=== PATIENT | female | born 1985 | race Caucasian/White ===

== ENCOUNTER 2017-05-12 13:03 | Emergency (ER) | payer BC ==
[~2017-05-12] VITALS: Ht 165.1 cm; Wt 68.5 kg
[2017-05-12 15:33] LABS: BASOPHIL % 0.7 % (0-2); PLATELET COUNT 251 x10^3mcL (130-400); RED CELL DISTRIBUTION WIDTH 12.8 % (11.5-14.5)
[2017-05-12 15:34] LABS: UA SPECIFIC GRAVITY <=1.005 (1.005-1.035); microscopic required? YES; urine erythrocyte NEGATIVE (NEGATIVE)
[2017-05-12 15:41] LABS: CALCIUM 8.8 mg/dL (8.5-10.1); CARBON DIOXIDE 28.7 mmol/L (21-32); CHLORIDE SERUM 104 mmol/L (98-107); CREATININE SERUM 0.8 mg/dL (0.6-1.0); GFR1 > 60 mL/min; GLUCOSE SERUM 88 mg/dL (74-106); POTASSIUM SERUM 3.9 mmol/L (3.5-5.1); SODIUM SERUM 140 mmol/L (136-145)
[2017-05-12 15:45] LABS: ALBUMIN 3.6 g/dL (3.4-5.0); ALKALINE PHOSPHATASE 49 U/L (46-116); ALT/SGPT 31 U/L (14-59); AMYLASE 34 U/L (25-115); AST/SGOT 22 U/L (15-37); BILIRUBIN TOTAL 0.5 mg/dL (0.20-1.00); LIPASE 124 IU/L (73-393)
[2017-05-12 17:19] VITALS: BP 102/70
== END 2017-05-12 17:19 | disposition home or self-care (01) ==
LOC: ED 13:03
PROVIDERS: Emergency Medicine
DX: N39.0 Urinary tract infection, site not specified (principal)
CPT/HCPCS: 36415; J1885; J1956; J2405; J7030; Q0092

== ENCOUNTER 2017-06-03 08:46 | Emergency (ER) | payer BC ==
[2017-06-03 10:07] VITALS: BP 140/85
== END 2017-06-03 10:22 | disposition home or self-care (01) ==
LOC: ED 08:46
DX: R10.12 Left upper quadrant pain (principal); Z88.1 Allergy status to other antibiotic agents; Z88.2 Allergy status to sulfonamides; Z88.8 Allergy status to other drugs, medicaments and biological substances